=== PATIENT | male | born 1975 | race Caucasian/White ===

== ENCOUNTER → 2016-11-06 | Outpatient (CLI) | payer BC ==
--- NOTE | 2016-11-06 11:07 | DIAGNOSTIC IMAGING REPORT ---
THYROID ULTRASONOGRAPHY CLINICAL HISTORY: R22.1 Sensation of lump in throat COMPARISON STUDY: No previous studies for comparison. FINDINGS: The right lobe of thyroid measures 60 x 17 x 14 mm. The left lobe of thyroid measures 57 x 18 x 12 mm. No focal thyroid nodules are visualized. Incidental note is made of a nonpathologically enlarged left neck lymph node. IMPRESSION: No thyroid masses identified. Electronically signed by: Elio Venegas M.D. 11/06/2016 11:05 AM Dictated Date/Time: 11/06/2016 11:04 AM
== END | disposition home or self-care (01) ==
LOC: C.ULTR 10:35
PROVIDERS: ATTEND Nurse Practitioner Adult Health
DX: R22.1 Localized swelling, mass and lump, neck (principal)

== ENCOUNTER → 2016-12-11 | Outpatient (CLI) | payer BC ==
[2016-12-11 16:47] LABS: BASO ABS # 0.07 K/uL (0-0.2); COMPLETE YES; EOS % 4.4 %; HEMATOCRIT 46.6 % (42-52); IG% 0.1 %; LYMPH ABS # 1.96 K/uL (1.2-3.4); MEAN CORPUSCULAR HEMOGLOBIN 30.7 pg (25-34); MEAN CORPUSCULAR HGB CONC 34.1 g/dl (32-36); MEAN PLATELET VOLUME 11.4 fL (7.4-10.4); MONO % 8.3 %; NEUT % 58.2 %; PLATELET COUNT 220 K/uL (130-400); RED BLOOD COUNT 5.18 M/uL (4.7-6.1)
[2016-12-11 16:59] LABS: ALT/SGPT 23 U/L (12-78); AST/SGOT 11 U/L (15-37); BLOOD UREA NITROGEN 10 mg/dl (7-18); BUN/CREATININE RATIO 8.5 (10-20); CALCIUM 8.5 mg/dl (8.5-10.1); CARBON DIOXIDE 28 mmol/L (21-32); CHLORIDE 107 mmol/L (98-107); CHOLESTEROL 190 mg/dl (0-200); GLUCOSE 127 mg/dl (70-99); POTASSIUM 4.1 mmol/L (3.5-5.1); SODIUM 140 mmol/L (136-145)
[2016-12-11 17:10] LABS: ALB/GLOB RATIO 1.3 (0.9-2); ALKALINE PHOSPHATASE 101 U/L (45-117); CHOLESTEROL/HDL RATIO 5.9; HDL CHOLESTEROL 32 mg/dl; LDL CHOLESTEROL CALCULATED 122 mg/dl; TRIGLYCERIDES 182 mg/dl (0-150); VERY LOW DENSITY LIPOPROT CALC 36 mg/dl
== END | disposition home or self-care (01) ==
LOC: C.LABPBG 13:08
PROVIDERS: ATTEND Nurse Practitioner Adult Health
DX: Z00.00 Encounter for general adult medical examination without abnormal findings (principal); Z13.220 Encounter for screening for lipoid disorders

== ENCOUNTER → 2018-02-28 | Outpatient (CLI) | payer BC ==
--- NOTE | 2018-02-28 11:48 | DIAGNOSTIC IMAGING REPORT ---
ABDOMEN FOR HERNIA CLINICAL HISTORY: K42.9 Umbilical herniaEvaluate for umbilical hernia hernia TECHNIQUE: Ultrasound COMPARISON STUDY: None FINDINGS: Focal periumbilical hernia containing fat. This is nonreducible. No evidence of bowel containment. Maximum transaxial dimension of 9 mm. IMPRESSION: 1. Focal periumbilical fat-containing hernia. 2. This is nonreducible. 3. No evidence of bowel containment. The above report was generated using voice recognition software. It may contain grammatical, syntax or spelling errors. Electronically signed by: Mac Lee M.D. 02/28/2018 11:47 AM Dictated Date/Time: 02/28/2018 11:46 AM
== END | disposition home or self-care (01) ==
LOC: C.ULTR 11:18
PROVIDERS: ATTEND Nurse Practitioner Family
DX: K42.9 Umbilical hernia without obstruction or gangrene (principal)

== ENCOUNTER → 2018-03-11 | Outpatient (CLI) | payer BC ==
[2018-03-11 17:02] LABS: ALBUMIN 4.4 gm/dl (3.4-5.0); TOTAL PROTEIN 7.7 gm/dl (6.4-8.2)
== END | disposition home or self-care (01) ==
LOC: C.LABPBG 15:04
PROVIDERS: ATTEND Podiatrist
DX: B35.1 Tinea unguium (principal)